=== PATIENT | female | born 1990 | race Caucasian/White ===

== ENCOUNTER 2021-09-03 08:00 | Emergency (ER) | payer MEDICAID, SELFPAY ==
[2021-09-03] MEDS ORDERED: Acetaminophen 500 MG TAB ONE (08:41)
[2021-09-03] MEDS ORDERED: Ibuprofen 200 MG TAB ONE (08:41)
[2021-09-03 19:49] LABS: SARS-CoV-2 PCR by NAA DETECTED (NotDetected)
== END 2021-09-03 08:44 | disposition home or self-care (01) ==
LOC: CSHERS 08:00
DX: U07.1 COVID-19 (principal); F17.210 Nicotine dependence, cigarettes, uncomplicated
CPT/HCPCS: 99284; U0003; U0005